=== PATIENT | female | born 1995 | race African-American/Black ===

== ENCOUNTER 2018-05-12 17:07 | Emergency (ER) | payer OTHER, SELFPAY ==
--- NOTE | 2018-05-12 17:23 | ER ---
Nurse's Notes [facility] Name: Mara Nicole Age: 22 yrs Sex: Female : 1995 Arrival Date: 05/12/2018 Time: 17:16 Bed 11 Private MD: Diagnosis: Otalgia and effusion of ear Presentation: 05/12 17:16 Presenting complaint: Patient states: Right ear pain for the past 2 to 3 weeks, for the aj1 past few days its been hard to hear out of that ear. Transition of care: patient was not received from another setting of care. Onset of symptoms was April 2018. Risk Assessment: Do you want to hurt yourself or someone else? Patient reports no desire to harm self or others. Initial Sepsis Screen: Does the patient meet any 2 criteria? No. Patient's initial sepsis screen is negative. Does the patient have a suspected source of infection? No. Patient's initial sepsis screen is negative. Care prior to arrival: None. 17:16 Method Of Arrival: Ambulatory aj 17:16 Acuity: KELLI 4 aj1 Triage Assessment: 17:17 General: Appears in no apparent distress. comfortable, Behavior is calm, cooperative, aj1 appropriate for age. Pain: Complains of pain in right ear. EENT: Reports ear pain. Neuro: Level of Consciousness is awake, alert, obeys commands. Cardiovascular: Patient's skin is warm and dry. Respiratory: Airway is patent Respiratory effort is even, unlabored, Respiratory pattern is regular, symmetrical. 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 - Social history:: Smoking status: Patient uses tobacco products, denies chronic smoking, but will smoke occasionally. - Ebola Screening: : Patient denies travel to an Ebola-affected area in the 21 days before illness onset. Vital Signs: 17:17 BP 115 / 74; Pulse 71; Resp 16; Temp 97.6; Pulse Ox 100% on R/A; Weight 58.97 kg (M); aj1 Height 5 ft. 5 in. (165.10 cm) (R); Pain 3/10; 17:17 Body Mass Index 21.63 (58.97 kg, 165.10 cm) aj1 ED Course: 17:16 Patient arrived in ED. aj1 17:17 Triage completed. aj1 17:17 Angie Sarabia FNP-C is [facility]. kb 17:17 Nathan Betancourt MD is Attending Physician. kb 17:17 Arm band placed on Patient placed in an exam room. aj1 17:58 No provider procedures requiring assistance completed. Patient did not have IV access ss during this emergency room visit. Administered Medications: No medications were administered Outcome: 17:23 Discharge ordered by MD. kb 17:58 Discharged to home ambulatory. ss 17:58 Condition: good 17:58 Discharge instructions given to patient, Instructed on discharge instructions, follow up and referral plans. medication usage, Demonstrated understanding of instructions, follow-up care, medications, Prescriptions given X 1. 17:58 Patient left the ED. ss Signatures: Angie Sarabia FNP-C FNP-Lottie Waldrop, RN RN aj1 Pratima Amaya RN RN ss
--- NOTE | 2018-05-12 17:23 | EDPHYS ---
Physician Documentation [facility] Name: Mara Nicole Age: 22 yrs Sex: Female : 1995 Arrival Date: 05/12/2018 Time: 17:16 Bed 11 Private MD: ED Physician Nathan Betancourt HPI: 05/12 17:20 This 22 yrs old Black Female presents to ER via Ambulatory with complaints of Ear Pain. kb 17:20 The patient presents with pain, moderate. The complaints affect the right ear. Onset: kb The symptoms/episode began/occurred 3 week(s) ago. Modifying factors: The symptoms are alleviated by nothing, the symptoms are aggravated by nothing. Associated signs and symptoms: The patient has no apparent associated signs or symptoms. Severity of symptoms: At their worst the symptoms were mild in the emergency department the symptoms are unchanged. The patient has not experienced similar symptoms in the past. The patient has not recently seen a physician. 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 - Social history:: Smoking status: Patient uses tobacco products, denies chronic smoking, but will smoke occasionally. - Ebola Screening: : Patient denies travel to an Ebola-affected area in the 21 days before illness onset. ROS: 17:20 Constitutional: Negative for fever, chills, and weight loss, Cardiovascular: Negative kb for chest pain, palpitations, and edema, Respiratory: Negative for shortness of breath, cough, wheezing, and pleuritic chest pain, Abdomen/GI: Negative for abdominal pain, nausea, vomiting, diarrhea, and constipation, MS/Extremity: Negative for injury and deformity, Skin: Negative for injury, rash, and discoloration, Neuro: Negative for headache, weakness, numbness, tingling, and seizure. 17:20 ENT: Positive for ear pain. Exam: 17:20 Constitutional: This is a well developed, well nourished patient who is awake, alert, kb and in no acute distress. Head/Face: Normocephalic, atraumatic. Chest/axilla: Normal chest wall appearance and motion. Nontender with no deformity. No lesions are appreciated. Cardiovascular: Regular rate and rhythm with a normal S1 and S2. No gallops, murmurs, or rubs. Normal PMI, no JVD. No pulse deficits. Respiratory: Lungs have equal breath sounds bilaterally, clear to auscultation and percussion. No rales, rhonchi or wheezes noted. No increased work of breathing, no retractions or nasal flaring. Abdomen/GI: Soft, non-tender, with normal bowel sounds. No distension or tympany. No guarding or rebound. No evidence of tenderness throughout. Skin: Warm, dry with normal turgor. Normal color with no rashes, no lesions, and no evidence of cellulitis. MS/ Extremity: Pulses equal, no cyanosis. Neurovascular intact. Full, normal range of motion. Neuro: Awake and alert, GCS 15, oriented to person, place, time, and situation. Cranial nerves II-XII grossly intact. Motor strength 5/5 in all extremities. Sensory grossly intact. Cerebellar exam normal. Normal gait. 17:20 ENT: External ear(s): are unremarkable, Ear canal(s): are normal, TM's: fluid levels, bilaterally. Vital Signs: 17:17 BP 115 / 74; Pulse 71; Resp 16; Temp 97.6; Pulse Ox 100% on R/A; Weight 58.97 kg (M); aj1 Height 5 ft. 5 in. (165.10 cm) (R); Pain 3/10; 17:17 Body Mass Index 21.63 (58.97 kg, 165.10 cm) aj1 MDM: 17:20 Patient medically screened. kb 17:22 Data reviewed: vital signs, nurses notes. Data interpreted: Pulse oximetry: on room air kb is 100 %. Interpretation: normal. Counseling: I had a detailed discussion with the patient and/or guardian regarding: the historical points, exam findings, and any diagnostic results supporting the discharge/admit diagnosis, the need for outpatient follow up, an ENT specialist, to return to the emergency department if symptoms worsen or persist or if there are any questions or concerns that arise at home. Administered Medications: No medications were administered Disposition: 17:51 Co-signature as Attending Physician, Nathan Betancourt MD. Disposition: 05/12/18 17:23 Discharged to Home. Impression: Otalgia and effusion of ear. - Condition is Stable. - Discharge Instructions: Earache, Adult. - Prescriptions for Prednisone 20 mg Oral Tablet - take 1 tablet by ORAL route once daily for 5 days; 5 tablet. - Medication Reconciliation Form, Thank You Letter, Antibiotic Education, Prescription Opioid Use form. - Follow up: Emergency Department; When: As needed; Reason: Worsening of condition. Follow up: Private Physician; When: 2 - 3 days; Reason: Recheck today's complaints, Continuance of care, Re-evaluation by your physician. Signatures: Angie Sarabia, [employer]-C [employer]S ADMINISTRATOR-Lottie Waldrop RN RN aj1 Pratima Amaya RN RN ss Nathan Betancourt MD MD gs Corrections: (The following items were deleted from the chart) 17:58 17:23 05/12/2018 17:23 Discharged to Home. Impression: Otalgia and effusion of ear. ss Condition is Stable. Forms are Medication Reconciliation Form, Thank You Letter, Antibiotic Education, Prescription Opioid Use. Follow up: Emergency Department; When: As needed; Reason: Worsening of condition. Follow up: Private Physician; When: 2 - 3 days; Reason: Recheck today's complaints, Continuance of care, Re-evaluation by your physician. kb
== END 2018-05-12 17:58 | disposition home or self-care (01) ==
LOC: ER 17:07
DX: H93.8X1 Other specified disorders of right ear (principal); Z72.0 Tobacco use
CPT/HCPCS: 99282